=== PATIENT | male | born 1955 | race Caucasian/White ===

== ENCOUNTER 2016-08-07 14:18 | Inpatient (IN) | payer OTHER ==
--- NOTE | 2016-08-07 14:24 | PDOC ---
History of Present Illness - History of Present Illness Initial Comments: 08/07/16 14:56 The patient is a 66-year-old patient, with a, multiple systemic surgeries, hypertension, who presents to the ED s/p mechanical fall today. The patient slipped and hit his head while bowling. He sustained a bump to the left-side of his head and a left wrist injury. Upon examination, pt states that he is experiencing head pain and left wrist pain. He does not recall the fall but does remember being in the ambulance. Pt is sensitive to the light. The patient denies having any other symptoms. <Briseida Corea - Last Filed: 08/07/16 18:13> <Elizabeth Johnson - Last Filed: 08/07/16 19:01> - General Chief Complaint: Injury Stated Complaint: FALL Past History <Briseida Corea - Last Filed: 08/07/16 18:13> <Elizabeth Johnson - Last Filed: 08/07/16 19:01> - Past Medical History Allergies/Adverse Reactions: Allergies Allergy/AdvReac Type Severity Reaction Status Date / Time No Known Allergies Allergy Verified 08/07/16 14:23 Home Medications: Ambulatory Orders Apixaban [Eliquis] 5 mg PO DAILY 08/07/16 Aspirin [ASA -] 81 mg PO DAILY 08/07/16 Dronedarone HCl [Multaq] 400 mg PO DAILY 08/07/16 Metformin HCl 500 mg PO DAILY 08/07/16 Paroxetine HCl 20 mg PO DAILY 08/07/16 Review of Systems - Review of Systems Able to Perform ROS?: Yes Comments:: 08/07/16 14:56 GENERAL/CONSTITUTIONAL: No fever or chills. No weakness. HEAD, EYES, EARS, NOSE AND THROAT: No change in vision. No ear pain or discharge. No sore throat. CARDIOVASCULAR: No chest pain or shortness of breath. RESPIRATORY: No cough, wheezing, or hemoptysis. GASTROINTESTINAL: No nausea, vomiting, diarrhea or constipation. GENITOURINARY: No dysuria, frequency, or change in urination. MUSCULOSKELETAL: No joint swelling or pain. No neck or back pain. (+)Left wrist pain SKIN: No rash NEUROLOGIC: No vertigo, loss of consciousness, or change in strength/sensation. (+)headache ENDOCRINE: No increased thirst. No abnormal weight change. HEMATOLOGIC/LYMPHATIC: No anemia, easy bleeding, or history of blood clots. ALLERGIC/IMMUNOLOGIC: No hives or skin allergy. <Briseida Corea - Last Filed: 08/07/16 18:13> *Physical Exam - Vital Signs Last Vital Signs Temp Pulse Resp BP Pulse Ox 97.9 F 73 18 141/84 100 08/07/16 14:20 08/07/16 14:20 08/07/16 14:20 08/07/16 14:20 08/07/16 14:20 <Briseida Corea - Last Filed: 08/07/16 18:13> - Physical Exam Comments: GENERAL: Awake, alert, dazed, in no acute distress HEAD: +Large hematoma to the L forehead. EYES: PERRLA, EOMI, sclera anicteric, conjunctiva clear ENT: Auricles normal inspection, hearing grossly normal, nares patent, oropharynx clear without exudates. Moist mucosa NECK: Normal ROM, supple, no lymphadenopathy, JVD, or masses LUNGS: Breath sounds equal, clear to auscultation bilaterally. No wheezes, and no crackles HEART: Regular rate and rhythm, normal S1 and S2, no murmurs, rubs or gallops ABDOMEN: Soft, nontender, normoactive bowel sounds. No guarding, no rebound. No masses EXTREMITIES: L wrist with bony deformity and tenderness to distal radius. Remainder of extremities with normal range of motion, no edema. No clubbing or cyanosis. No cords, erythema, or tenderness NEUROLOGICAL: Cranial nerves II through XII grossly intact. Normal speech. Strength and sensation intact. Gait not tested due to nature of complaint. SKIN: Warm, Dry, normal turgor, no rashes or lesions noted. <Elizabeth oJhnson - Last Filed: 08/07/16 19:01> Procedures - Splinting Splint Location: Left: Wrist Pre-Proc Neuro Vasc Exam: normal Hand-Made Type: orthoglass Splint Type: Yes: Thumb Spica Post-Proc Neuro Vasc Exam: normal David Bandage: yes, 3" Complications: No <Elizabeth Johnson - Last Filed: 08/07/16 19:01> Heart Score/ECG Review - ECG Impressions Comment:: EKG read 14:42- NSR 72 bpm, no acute ST/T changes <Elizabeth Johnson - Last Filed: 08/07/16 19:01> ED Treatment Course - LABORATORY CBC & Chemistry Diagram: 08/07/16 14:30 08/07/16 14:30 <Briseida Corea - Last Filed: 08/07/16 18:13> - LABORATORY CBC & Chemistry Diagram: 08/07/16 14:30 08/07/16 14:30 <Elizabeth Johnson - Last Filed: 08/07/16 19:01> Medical Decision Making - Medical Decision Making 08/07/16 15:55 Dr. White was paged and notified via phone service. <Briseida Corea - Last Filed: 08/07/16 18:13> - Medical Decision Making 08/07/16 16:21 Case d/w Dr. White, covering ortho. Recommended placement in splint, follow up in the office on Tuesday (it is currently Tuesday). I have discussed with patient and his significant other, who is now at the bedside. She states that he has fallen 3 times lately, no LOC. No recent cp, SOB, palpitations. He has history of afib on eliquis, HTN, DM on metformin. 08/07/16 16:39 Will admit to hospitalist service. CTH negative, however, patient still having anterograde amnesia, with history of anticoagulants. 08/07/16 17:10 Thumb spica splint placed. Patient tolerated well. <Elizabeth Johnson - Last Filed: 08/07/16 19:01> *DC/Admit/Observation/Transfer - Attestations Scribe Attestion: 08/07/16 14:59 Documentation prepared by Briseida Corea, acting as nuclear medical technologist for Elizabeth Johnson MD. <Briseida Corea - Last Filed: 08/07/16 18:13> - Discharge Dispostion Admit: Yes <Elizabeth Johnson - Last Filed: 08/07/16 19:01> Diagnosis at time of Disposition: Distal radius fracture, left Qualifiers: Encounter type: initial encounter Fracture type: closed Fracture morphology: unspecified fracture morphology Qualified Code(s): S52.502A - Unspecified fracture of the lower end of left radius, initial encounter for closed fracture Concussion Qualifiers: Encounter type: initial encounter Loss of consciousness presence/duration: with LOC of 30 min or less Qualified Code(s): S06.0X1A - Concussion with loss of consciousness of 30 minutes or less, initial encounter Head injury Qualifiers: Encounter type: initial encounter Qualified Code(s): S09.90XA - Unspecified injury of head, initial encounter - Discharge Dispostion Condition at time of disposition: Stable
[2016-08-07] MEDS ORDERED: ACETAMINOPHEN 1000 MG/100 ML VIAL (NON FORMULARY) IVPB ONE (14:25)
[2016-08-07 14:28] VITALS: BMI 25.8
[2016-08-07] MEDS ORDERED: ACETAMINOPHEN INJECTION 100 ML IVPB ONE (14:36)
[2016-08-07 14:41] LABS: BASOPHIL 0.7 % (0-2.0); EOSINOPHIL 2.2 % (0-4.5); MCH 29.1 pg (25.7-33.7); MCHC 33.9 g/dl (32.0-35.9); MEAN CELL VOLUME 85.9 fl (80-96); MEAN PLT VOLUME 8.7 fl (7.5-11.1); NEUTROPHILS 62.2 % (42.8-82.8); PLATELET COUNT 173 K/MM3 (134-434); RDW 13.8 % (11.9-15.9); WHITE BLOOD COUNT 4.4 K/mm3 (4.0-10.0)
[2016-08-07 15:16] LABS: ANION GAP 12 (8-16); CALCIUM 8.6 mg/dL (8.5-10.1); CO2 25 mmol/L (21-32); GLUCOSE,RANDOM 101 mg/dL (74-106)
[2016-08-07 15:19] LABS: ALK PHOS 86 U/L (45-117); BILIRUBIN,TOTAL 0.6 mg/dL (0.2-1.0); CREATININE 0.8 mg/dL (0.7-1.3); SGOT/AST 20 U/L (15-37); SGPT/ALT 40 U/L (12-78); TOT PROT 6.8 g/dl (6.4-8.2)
[2016-08-07] MEDS ORDERED: morphine CARPU-JECT 4 MG/1 ML DISP.SYRIN IVPUSH ONE (15:28)
[2016-08-07] MEDS ORDERED: morphine CARPU-JECT 4 MG/1 ML DISP.SYRIN ONE (15:31)
[2016-08-07 16:43] LABS: INR 1.36 (0.82-1.09); PROTHROMBIN TIME (PATIENT) 15.1 SEC (9.98-11.88)
[2016-08-07] MEDS ORDERED: morphine CARPU-JECT 2 MG/1 ML DISP.SYRIN IVPUSH ONE (16:52)
[2016-08-07] MEDS ORDERED: morphine CARPU-JECT 2 MG/1 ML DISP.SYRIN ONE (16:54)
--- NOTE | 2016-08-07 18:05 | HP ---
CHIEF COMPLAINT: [place] the [place], with head and left arm injury. PCP: Dr. Elizabeth Ramirez MD Business Supervisor: Dr. Dain MD [phone] (Patient scheduled for follow up Cardiology appt on 08/26/2016) HISTORY OF PRESENT ILLNESS: The patient is a 61 year old male with a significant past medical history of atrial fibrillation (on Eliquis), hypertension and multiple falls. He presented to the ED on 08/07/2016 after sustaining a fall in a bowling alley. The patient, and friends state that patient slipped and hit his head while he was bowling and contributes the fall to slippery bowling shoes. He denies any dizziness before falling, denies chest pain or shortness of breath. He is unable to recall the events that brought him to the ED today, but was able to provide a history to EMS. His also reports that patient fell at home approximately two weeks ago when he was sitting at the side of the bathtub and fell backwards landing inside tub. He did not seek medical attention at that time. Patient also reports a mechanical fall at work approximately two weeks ago when he lost his balance and slipped on something (does not recall what) but state he went to Urgent Care but a cat scan was not done. Patient denies alcohol use, drug use or any new recent medications. ER course was notable for: (1) left frontal hematoma on blood thinners (2) left wrist with comminuted distal radial fracture (3) anterograde amnesia (4) CT of head with no evidence of acute intracranial pathology (5) Chest Xray - large heart - no acute chest pathology Recent Travel: denies PAST MEDICAL HISTORY: Atrial fibrillation (On Eliquis), Hypertension, Diabetes PAST SURGICAL HISTORY: Social History: Smoking: denies Alcohol: denies Drugs: denies Family History: He is , has two children ages 31 and 37 Allergies: none reported No Known Allergies Allergy (Verified 08/07/16 14:23) HOME MEDICATIONS: Medication Instructions Recorded Apixaban [Eliquis] 5 mg PO DAILY 08/07/16 Aspirin [ASA -] 81 mg PO DAILY 08/07/16 Dronedarone HCl [Multaq] 400 mg PO DAILY 08/07/16 Metformin HCl 500 mg PO DAILY 08/07/16 Paroxetine HCl 20 mg PO DAILY 08/07/16 REVIEW OF SYSTEMS CONSTITUTIONAL: Absent: fever, chills, diaphoresis, malaise, loss of appetite, weight change HEENT: Absent: rhinorrhea, nasal congestion, throat pain, throat swelling, difficulty swallowing, mouth swelling, ear pain, eye pain, visual changes CARDIOVASCULAR: Absent: chest pain, palpitations, irregular heart rate, peripheral edema RESPIRATORY: Absent: cough, shortness of breath, dyspnea with exertion, orthopnea, wheezing, stridor, hemoptysis GASTROINTESTINAL: Absent: abdominal pain, abdominal distension, nausea, vomiting, diarrhea, constipation, melena, hematochezia GENITOURINARY: Absent: dysuria, frequency, urgency, hesitancy, hematuria, flank pain, genital pain MUSCULOSKELETAL: Absent: myalgia, arthralgia, joint swelling, back pain, neck pain SKIN: Absent: rash, itching, pallor HEMATOLOGIC/IMMUNOLOGIC: Absent: easy bleeding, easy bruising, lymphadenopathy, frequent infections ENDOCRINE: Absent: unexplained weight gain, unexplained weight loss, heat intolerance, cold intolerance PHYSICAL EXAMINATION GENERAL: Awake, alert, answers questions appropriately, but cannot recall events of today's fall. HEAD: Left frontal hematoma, head injury s/p fall EYES: Pupils equal, round and reactive to light, No injury to eye EARS, NOSE, THROAT: Ears normal, nares patent, oropharynx clear without exudates. Moist mucous membranes. NECK: Normal range of motion, supple without lymphadenopathy, JVD, or masses. LUNGS: Breath sounds equal, clear to auscultation bilaterally. No wheezes, and no crackles. No accessory muscle use. HEART: Regular rate and rhythm ABDOMEN: Soft, nontender, not distended, normoactive bowel sounds, no guarding, no rebound, no masses. MUSCULOSKELETAL: Left comminuted distal radial fracture with element of impaction and possible ulnar styloid fracture UPPER EXTREMITIES: 2+ pulses, warm, well-perfused. No cyanosis. No clubbing. Cap refill <2 seconds. No peripheral edema. LOWER EXTREMITIES: No peripheral edema. NEUROLOGICAL: Normal speech. Normal gait. PSYCHIATRIC: Cooperative. Good eye contact SKIN: Warm, dry, normal turgor, no rashes or lesions noted. ASSESSMENT/PLAN: The patient is a 61 year old male with a significant past medical history of atrial fibrillation (on Eliquis), hypertension and multiple falls. He presented to the ED on 08/07/2016 after sustaining fall in [place]. The patient, and friends state that patient slipped and hit his head while he was bowling and contributes the fall to slippery bowling shoes. He denies any dizziness before falling, denies chest pain or shortness of breath. He is unable to recall the events that brought him to the ED today, but was able to provide a history to EMS. His also reports that patient fell at home approximately two weeks ago when he was sitting at the side of the bathtub and fell backwards landing inside tub. He did not seek medical attention at that time. Patient also reports a mechanical fall at work approximately two weeks ago when he lost his balance and slipped on something (does not recall what) but state he went to Urgent Care but a cat scan was not done. Patient denies alcohol use, drug use or any new recent medications. PCP: Dr. Elizabeth Ramirez MD Business Supervisor: Dr. Dain MD [phone] (Patient scheduled for follow up Cardiology appt on 08/26/2016) Cardiology: Syncope Assessment/Plan: Multiple falls in the last 2 weeks, now with left frontal hematoma and left distal radial fracture Troponin x 3 ordered Carotid doppler ordered CT scan of head with no evidence of acute intracranial bleed, will repeat CT in the a.m. On Eliquis daily for atrial fibrillation - will check CT scan in a.m. and if no evidence of bleed, will order Eliquis and ASA On Multaq home medication Orthostatics q8 Continous telemonitoring Neurology: Assessment/Plan: Patient experiencing anterograde amnesia Neuro checks q4 Neurology consulted Muscular/Skeletal: Left comminuted distal radial fracture with an element of impaction and a possible ulnar styloid fracture Ortho following, on left arm splint Endocrine: Diabetes Mellitus - chronic Assessment/Plan: Hold metformin, start on Novolog sliding scale HmgA1c for a.m. F.E.N. Fluids: Tolerating PO Electrolytes: within normal limits, Bmp in a.m. Nutrition: Diabetic diet Visit type - Emergency Visit Emergency Visit: Yes ED Registration Date: 08/07/16 Care time: The patient presented to the Emergency Department on the above date and was hospitalized for further evaluation of their emergent condition. - New Patient This patient is new to me today: Yes Date on this admission: 08/08/16 - Critical Care Critical Care patient: No
[2016-08-07] MEDS ORDERED: PARoxetine HCL 10 MG TABLET (FP) ONE (18:29)
[2016-08-07] MEDS: PARoxetine HCL 20 MG TABLET (FP) PO SCH (18:32)
[2016-08-07 20:10] LABS: TROPONIN I < 0.02 ng/ml (0.00-0.05)
[2016-08-07] MEDS: morphine CARPU-JECT 2 MG/1 ML DISP.SYRIN IVPUSH PRN (20:18)
[2016-08-07] MEDS: INSULIN SLIDING SCALE (NOVOLOG) 1 VIAL SQ SCH (23:07)
[2016-08-07] MEDS: ACETAMINOPHEN 325 MG TABLET (FP) PO PRN (23:18)
[2016-08-08 02:06] LABS: URINE APPEARANCE CLEAR; URINE BILIRUBIN NEGATIVE (NEGATIVE); URINE BLOOD NEGATIVE (NEGATIVE); URINE COLOR YELLOW; URINE GLUCOSE (UA) NEGATIVE (NEGATIVE); URINE KETONE NEGATIVE (NEGATIVE); URINE LEUK ESTERASE NEGATIVE (NEGATIVE); URINE NITRITE NEGATIVE (NEGATIVE); URINE PROTEIN NEGATIVE (NEGATIVE); URINE UROBILINOGEN NEGATIVE E.U./dl (0.2-1.0)
[2016-08-08] MEDS: ACETAMINOPHEN 325 MG TABLET (FP) PO PRN ×2 (05:46→15:00)
[2016-08-08] MEDS: INSULIN SLIDING SCALE (NOVOLOG) 1 VIAL SQ SCH ×4 (06:52→21:20)
[2016-08-08 07:23] LABS: BASOPHIL 0.4 % (0-2.0); EOSINOPHIL 0.9 % (0-4.5); MCH 28.7 pg (25.7-33.7); MCHC 33.6 g/dl (32.0-35.9); MEAN CELL VOLUME 85.4 fl (80-96); MEAN PLT VOLUME 8.8 fl (7.5-11.1); NEUTROPHILS 73.2 % (42.8-82.8); PLATELET COUNT 160 K/MM3 (134-434); RDW 13.8 % (11.9-15.9); WHITE BLOOD COUNT 6.1 K/mm3 (4.0-10.0)
[2016-08-08 08:06] LABS: ALBUMIN 3.7 g/dl (3.4-5.0); ANION GAP 11 (8-16); CALCIUM 8.2 mg/dL (8.5-10.1); CO2 26 mmol/L (21-32); GLUCOSE,RANDOM 110 mg/dL (74-106); MAGNESIUM 1.8 mg/dL (1.8-2.4)
[2016-08-08 08:11] LABS: ALK PHOS 78 U/L (45-117); BILIRUBIN,TOTAL 0.9 mg/dL (0.2-1.0); CREATININE 0.7 mg/dL (0.7-1.3); SGOT/AST 14 U/L (15-37); SGPT/ALT 32 U/L (12-78); TOT PROT 6.3 g/dl (6.4-8.2); TROPONIN I < 0.02 ng/ml (0.00-0.05)
[2016-08-08 08:12] LABS: CHOLESTEROL 138 mg/dL (50-200)
--- NOTE | 2016-08-08 08:28 | PN ---
Progress Note (short form) - Note Progress Note: Cardiology Consult Dictated PAF s/p multiple DCCV on chronic AC with multiple recent falls, minor head trauma REC: Tele to r/o arrhythmia Echo Carotid US Neuro to evaluate To discuss safety of longterm AC
--- NOTE | 2016-08-08 08:39 | PN ---
Physical Exam: SUBJECTIVE: Patient seen and examined. Complaining of a head ache this morning. He denies any visual defect, chest pain or shortness of breath. OBJECTIVE: Vital Signs Period Temp Pulse Resp BP Sys/Alston Pulse Ox Last 24 Hr 97.9 F-98.2 F 64-75 18-19 103-132/64-74 95-95 GENERAL: Awake, alert, answers questions appropriately HEAD: Left frontal scalp hematoma, head injury s/p fall - improving slightly EYES: Pupils equal, round and reactive to light, No injury to eye - denies visual defect EARS, NOSE, THROAT: Ears normal, nares patent, oropharynx clear without exudates. Moist mucous membranes. NECK: Normal range of motion, supple without lymphadenopathy, JVD, or masses. LUNGS: Breath sounds equal, clear to auscultation bilaterally. No wheezes, and no crackles. No accessory muscle use. HEART: Regular rate and rhythm ABDOMEN: Soft, nontender, not distended, normoactive bowel sounds, no guarding, no rebound, no masses. MUSCULOSKELETAL: Left comminuted distal radial fracture with element of impaction and possible ulnar styloid fracture - on fiberglass cast UPPER EXTREMITIES: 2+ pulses, warm, well-perfused. No cyanosis. No clubbing. Cap refill <2 seconds. No peripheral edema. LOWER EXTREMITIES: No peripheral edema. NEUROLOGICAL: Normal speech PSYCHIATRIC: Cooperative. Good eye contact SKIN: Left frontal scalp hematoma, head injury s/p fall - improving slightly Laboratory Results - last 24 hr 08/07/16 08/07/16 08/07/16 18:00 19:20 19:20 WBC RBC Hgb Hct MCV MCHC RDW Plt Count MPV Neutrophils % Lymphocytes % Monocytes % Eosinophils % Basophils % PTT (Actin FS) 34.7 H POC Glucometer Creatine Kinase 88 Troponin I < 0.02 < 0.02 Urine Color Urine Appearance Urine pH Ur Specific Henry Urine Protein Urine Glucose (UA) Urine Ketones Urine Blood Urine Nitrite Urine Bilirubin Urine Urobilinogen Ur Leukocyte Esterase 08/07/16 08/07/16 08/08/16 22:59 23:00 05:35 WBC 6.1 D RBC 4.52 Hgb 13.0 Hct 38.6 MCV 85.4 MCHC 33.6 RDW 13.8 Plt Count 160 MPV 8.8 Neutrophils % 73.2 Lymphocytes % 17.8 D Monocytes % 7.7 Eosinophils % 0.9 Basophils % 0.4 PTT (Actin FS) POC Glucometer 300 Creatine Kinase Troponin I Urine Color Yellow Urine Appearance Clear Urine pH 5.0 Ur Specific Henry 1.028 Urine Protein Negative Urine Glucose (UA) Negative Urine Ketones Negative Urine Blood Negative Urine Nitrite Negative Urine Bilirubin Negative Urine Urobilinogen Negative Ur Leukocyte Esterase Negative 08/08/16 05:49 WBC RBC Hgb Hct MCV MCHC RDW Plt Count MPV Neutrophils % Lymphocytes % Monocytes % Eosinophils % Basophils % PTT (Actin FS) POC Glucometer 110 Creatine Kinase Troponin I Urine Color Urine Appearance Urine pH Ur Specific Henry Urine Protein Urine Glucose (UA) Urine Ketones Urine Blood Urine Nitrite Urine Bilirubin Urine Urobilinogen Ur Leukocyte Esterase Active Medications Generic Name Dose Route Start Last Admin Trade Name Freq PRN Reason Stop Dose Admin Acetaminophen 650 mg 08/07/16 18:51 08/08/16 05:46 Tylenol - PO 650 mg Q6H PRN Administration FEVER OR PAIN Dronedarone 400 mg 08/08/16 10:00 Multaq - PO DAILY [facility] Insulin Aspart 1 vial 08/07/16 22:00 08/08/16 06:52 Novolog Vial Sliding Scale - SQ Not Given [facility] Protocol Morphine Sulfate 2 mg 08/07/16 18:22 08/07/16 20:18 Morphine Injection - IVPUSH 2 mg Q4H PRN Administration PAIN Paroxetine HCl 20 mg 08/07/16 18:00 08/07/16 18:32 Paxil - PO Not Given DAILY [facility] ASSESSMENT/PLAN: The patient is a 61 year old male with a significant past medical history of atrial fibrillation (on Eliquis), hypertension and multiple falls. He presented to the ED on 08/07/2016 after sustaining a fall [place] a bowling [place]. The patient, and friends state that patient slipped and hit his head while he was bowling and contributes the fall to slippery bowling shoes. He denies any dizziness before falling, denies chest pain or shortness of breath. He is unable to recall the events that brought him to the ED yesterday, but was able to provide a history to EMS. His also reports that patient fell at home approximately two weeks ago when he was sitting at the side of the bathtub and fell backwards landing inside tub. He did not seek medical attention at that time. Patient also reports a mechanical fall at work approximately two weeks ago when he lost his balance and slipped on something (does not recall what) but state he went to Urgent Care but a head cat scan was not done. Patient denies alcohol use, drug use or any new recent medications. PCP: Dr. Elizabeth Ramirez MD Specialty Sales Consultant: Dr. Dain MD [phone] (Patient scheduled for follow up Cardiology appt on 08/26/2016) Cardiology: Syncope Assessment/Plan: Multiple falls in the last 2 weeks, now with left frontal scalp hematoma and left distal radial fracture Troponin x 3 negative Carotid doppler ordered - pending read Repeat CT scan 08/08/2016 shows left frontal scalp hematoma - negative for bleed Plavix ordered as per Cardiology recommendations On Dronedarone 400mg home medication for atrial fib.-patient states the takes it BID Orthostatics q8 Continous telemonitoring - NSR 80s on automatic data processing planner Atrial Fibrillation - controlled Assessment/Plan. On Dronedarone 400mg BID for rate control Last episode of atrial fib was apx 2 years prior Started on Plavix per cardiology Neurology: Assessment/Plan: Patient experiencing anterograde amnesia Neuro checks q4 Neurology consulted Muscular/Skeletal: Left comminuted distal radial fracture with an element of impaction and a possible ulnar styloid fracture Ortho following, on left arm fiberglass cast Endocrine: Diabetes Mellitus - chronic Assessment/Plan: Hold metformin, start on Novolog sliding scale HmgA1c 7.3, monitor BGMs F.E.N. Fluids: Tolerating PO Electrolytes: within normal limits, Bmp in a.m. Nutrition: Diabetic diet/low sodium Physical therapy requested for multiple falls - may need STR Disposition: Requires inpatient hospitalization. Full Code. Visit type - Emergency Visit Emergency Visit: Yes ED Registration Date: 08/07/16 Care time: The patient presented to the Emergency Department on the above date and was hospitalized for further evaluation of their emergent condition. - New Patient This patient is new to me today: No - Critical Care Critical Care patient: No - Discharge Referral Referred to [facility] No
--- NOTE | 2016-08-08 09:28 | CONS ---
DATE OF CONSULTATION: 08/08/2016 Consultation is requested by Dr. Dailey for falls versus syncope. CHIEF COMPLAINT: Fall at a bowling alley. A 61-year-old male with previous history of paroxysmal atrial fibrillation, followed by Dr. Gautam in [place]. Patient has undergone multiple cardioversion procedures; he is unsure of when the last one was. He is maintained chronically on Multaq and Eliquis. Patient states he went bowling yesterday, slipped, and fell. He had left the covers of the shoes on. This resulted in a fracture of his left wrist. He also had mild head trauma with a bruise overlying the left orbit. Initial head CT showed no acute intracranial pathology. Patient states he also had a fall at work several weeks ago, for which he was evaluated in a local urgent care center, although he does not recall the details of how that happened. Prior to falling yesterday, he denies antecedent chest pain, shortness of breath, dizziness, lightheadedness, palpitations; however, he has no recollection of the event. PAST MEDICAL HISTORY: Paroxysmal atrial fibrillation, borderline diabetes, on metformin, depression. He denies history of coronary artery disease. ALLERGIES: None. HOME MEDICATIONS: Paroxetine 20 mg daily, metformin 500 mg daily, dronedarone 400 mg daily, aspirin 81 mg daily, and Eliquis 5 mg p.o. b.i.d. FAMILY HISTORY: Noncontributory. SOCIAL HISTORY: Patient lives with . Nonsmoker. 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 PHYSICAL EXAMINATION: Vital Signs: Afebrile, temperature 98.2, pulse 64, sinus rhythm, blood pressure 126/74, O2 of 95% to 96% on room air. Neck: No bruits, no JVD. Heart: S1, S2, regular. No murmurs. Chest: Clear. Abdomen: Soft, nontender. Extremities: Warm with no pitting edema. CHEST X-RAY: No acute pathology. LABORATORIES: White count 6.1, hematocrit 38.6, platelets 160. INR 1.36. Potassium on admission 4.2, creatinine 0.8, BUN 18. CK and troponin negative x2 sets. PRESENTING ELECTROCARDIOGRAM: Normal sinus rhythm at 72 beats/min with no acute ST-T changes. ASSESSMENT: A 61-year-old male with paroxysmal atrial fibrillation, on anticoagulation, now with multiple falls, resulting in left wrist fracture and scalp hematoma. PLAN: 1. Telemetry to rule out arrhythmia. 2. Echocardiogram and carotid ultrasound. 3. Neurology evaluation. 4. To discuss safety of long-term anticoagulation in this patient. We will discuss with and attempt to reach Dr. Gautam when feasible. DENY QUINN M.D. [id number] MTDD
--- NOTE | 2016-08-08 09:31 | EKG ---
Test Reason : Blood Pressure : / mmHG Vent. Rate : 068 BPM Atrial Rate : 068 BPM P-R Int : 158 ms QRS Dur : 096 ms QT Int : 404 ms P-R-T Axes : 052 048 020 degrees QTc Int : 429 ms NORMAL SINUS RHYTHM NONSPECIFIC T WAVE ABNORMALITY ABNORMAL ECG WHEN COMPARED WITH ECG OF 07-AUG-2016 14:38, NO SIGNIFICANT CHANGE WAS FOUND Confirmed by DENY QUINN MD ([id number]) on 08/08/2016 9:30:57 AM Referred By: MALCOLM KARIMI Confirmed By:DENY QUINN MD
--- NOTE | 2016-08-08 09:34 | EKG ---
Test Reason : Blood Pressure : / mmHG Vent. Rate : 072 BPM Atrial Rate : 072 BPM P-R Int : 152 ms QRS Dur : 094 ms QT Int : 410 ms P-R-T Axes : 031 027 018 degrees QTc Int : 448 ms NORMAL SINUS RHYTHM NONSPECIFIC T WAVE ABNORMALITY ABNORMAL ECG NO PREVIOUS ECGS AVAILABLE Confirmed by EDNY QUINN MD ([id number]) on 08/08/2016 9:33:52 AM Referred By: Confirmed By:DENY QUINN MD
--- NOTE | 2016-08-08 09:56 | PN ---
Progress Note (short form) - Note Progress Note: Cardiology Addendum Spoke to Jackie. Last episode of AF was 2 years ago and had DCCV. Has been in sinus since then, patient is generally very sx when he is AF. So, it would be reasonable to stop anticoagulation given his multiple falls and she agrees. He has had tinnitus from ASA so we can start Plavix if repeat head CT is negative. Discussed at length with .
[2016-08-08] MEDS ORDERED: DRONEDARONE HCL 400 MG TAB (FP) PO SCH (10:00)
[2016-08-08] MEDS: CLOPIDOGREL BISULFATE 75 MG TABLET (FP) PO SCH (11:51)
[2016-08-08] MEDS: PARoxetine HCL 20 MG TABLET (FP) PO SCH (11:51)
--- NOTE | 2016-08-08 12:13 | CONSULT ---
Consult Consult Specialty:: Neurology Reason for Consultation:: Post concussive symptoms - History of Present Illness History of Present Illness: 61 year old man with history of atrial fibrillation (on Eliquis), hypertension and multiple falls, presents post fall. Yesterday was at a bowling alley where he slipped, fell and hit his head. He believes this occurred due to slippery bowling shoes. Has had other mechanical falls in the past including two weeks ago when he was sitting at the side of the bathtub and fell backwards landing inside tub. He did not seek medical attention at that time. Patient also reports a mechanical fall at work approximately two weeks ago when he lost his balance and slipped on something. Here CT head x2 showed no acute pathology Reports feeling better, notes headache and arm pain Denies seizure history, shaking during episode, tongue biting or incontinence. Could not recall exactly what happened during the episode. - History Source History Provided By: Patient - Past Medical History Cardio/Vascular: Yes: AFIB, HTN - Alcohol/Substance Use Hx Alcohol Use: No - Smoking History Smoking history: Never smoked Home Medications - Allergies Allergies/Adverse Reactions: Allergies Allergy/AdvReac Type Severity Reaction Status Date / Time No Known Allergies Allergy Verified 08/07/16 14:23 - Home Medications Home Medications: Ambulatory Orders Apixaban [Eliquis] 5 mg PO DAILY 08/07/16 Aspirin [ASA -] 81 mg PO DAILY 08/07/16 Dronedarone HCl [Multaq] 400 mg PO DAILY 08/07/16 Metformin HCl 500 mg PO DAILY 08/07/16 Paroxetine HCl 20 mg PO DAILY 08/07/16 Review of Systems - Review of Systems Constitutional: reports: No Symptoms Eyes: reports: No Symptoms HENT: reports: No Symptoms Neck: reports: No Symptoms Cardiovascular: reports: No Symptoms Respiratory: reports: No Symptoms Neurological: reports: No Symptoms Physical Exam Vital Signs: Vital Signs Temperature 98.2 F 08/08/16 06:00 Pulse Rate 65 08/08/16 06:53 Respiratory Rate 18 08/08/16 06:00 Blood Pressure 115/64 08/08/16 06:53 O2 Sat by Pulse Oximetry (%) 95 08/07/16 21:00 Constitutional: Yes: Well Nourished, No Distress Eyes: Yes: Conjunctiva Clear, EOM Intact HENT: Yes: Other Cardiovascular: Yes: S1, S2 Respiratory: Yes: Regular Neurological: Yes: Alert, Oriented, Cran Nerves II-XII Intact (knows name, age, place, month intact immediate recall, delayed recall 3/3 with prompting right arm weakness due to pain) Labs: CBC, BMP 08/08/16 05:35 08/08/16 05:35 Imaging - Results Cat Scan: Report Reviewed (no acute findings) Problem List - Problems (1) Concussion Code(s): S06.0X9A - CONCUSSION W LOSS OF CONSCIOUSNESS OF UNSP DURATION, INIT Qualifiers: Encounter type: initial encounter Loss of consciousness presence/ duration: with LOC of 30 min or less Qualified Code(s): S06.0X1A - Concussion with loss of consciousness of 30 minutes or less, initial encounter Assessment/Plan 61 year old man with history of atrial fibrillation (on Eliquis), hypertension and multiple falls, presents post fall. CT head x2 showed no acute pathology. Reports feeling better, notes headache and arm pain. Denies seizure history, shaking during episode, tongue biting or incontinence. Could not recall exactly what happened during the episode. Concussion CT head x2 negative Exam non focal, delayed recall impaired but intact with prompting Recommend supportive care, can follow up with us as outpatient if post concussive symptoms persist Please call if further questions
[2016-08-08 16:13] LABS: LDL CHOLESTEROL (ONLY SJRH) 78 mg/dL (5-100)
[2016-08-08] MEDS: morphine CARPU-JECT 2 MG/1 ML DISP.SYRIN IVPUSH PRN (17:02)
[2016-08-08] MEDS: DRONEDARONE HCL 400 MG TAB (FP) PO SCH (21:20)
[2016-08-09 07:29] LABS: BASOPHIL 0.9 % (0-2.0); EOSINOPHIL 1.5 % (0-4.5); MCH 29.6 pg (25.7-33.7); MCHC 34.5 g/dl (32.0-35.9); MEAN CELL VOLUME 85.7 fl (80-96); MEAN PLT VOLUME 8.7 fl (7.5-11.1); NEUTROPHILS 67.5 % (42.8-82.8); PLATELET COUNT 149 K/MM3 (134-434); WHITE BLOOD COUNT 5.5 K/mm3 (4.0-10.0)
[2016-08-09 08:09] LABS: ALBUMIN 3.8 g/dl (3.4-5.0); ALK PHOS 83 U/L (45-117); ANION GAP 11 (8-16); BILIRUBIN,TOTAL 0.7 mg/dL (0.2-1.0); CALCIUM 8.6 mg/dL (8.5-10.1); CO2 26 mmol/L (21-32); CREATININE 0.7 mg/dL (0.7-1.3); GLUCOSE,RANDOM 122 mg/dL (74-106); SGOT/AST 11 U/L (15-37); SGPT/ALT 27 U/L (12-78); TOT PROT 6.5 g/dl (6.4-8.2)
[2016-08-09 10:09] VITALS: PULSE 62; TEMP 98.2
[2016-08-09] MEDS: PARoxetine HCL 20 MG TABLET (FP) PO SCH (10:13)
[2016-08-09] MEDS: CLOPIDOGREL BISULFATE 75 MG TABLET (FP) PO SCH (10:13)
[2016-08-09] MEDS: DRONEDARONE HCL 400 MG TAB (FP) PO SCH (10:14)
[2016-08-09] MEDS: INSULIN SLIDING SCALE (NOVOLOG) 1 VIAL SQ SCH (11:30)
--- NOTE | 2016-08-09 11:36 | PN ---
Progress Note, Physician History of Present Illness: seen and examined today in [facility]. no overnight events. no new complaints. - Current Medication List Current Medications: Active Medications Acetaminophen (Tylenol -) 650 mg PO Q6H PRN PRN Reason: FEVER OR PAIN Last Admin: 08/08/16 15:00 Dose: 650 mg Clopidogrel Bisulfate (Plavix -) 75 mg PO DAILY [facility] Last Admin: 08/09/16 10:13 Dose: 75 mg Dronedarone (Multaq -) 400 mg PO BID [facility] Last Admin: 08/09/16 10:14 Dose: 400 mg Insulin Aspart (Novolog Vial Sliding Scale -) 1 vial SQ ACHS [facility] PRN Reason: Protocol Last Admin: 08/08/16 21:20 Dose: Not Given Morphine Sulfate (Morphine Injection -) 2 mg IVPUSH Q4H PRN PRN Reason: PAIN Last Admin: 08/08/16 17:02 Dose: 2 mg Paroxetine HCl (Paxil -) 20 mg PO DAILY [facility] Last Admin: 08/09/16 10:13 Dose: 20 mg - Objective Vital Signs: Vital Signs Temperature 98.2 F 08/09/16 10:00 Pulse Rate 62 08/09/16 10:00 Respiratory Rate 14 08/09/16 10:00 Blood Pressure 130/76 08/09/16 10:00 O2 Sat by Pulse Oximetry (%) 98 08/08/16 21:00 Constitutional: Yes: Well Nourished, No Distress, Calm Eyes: Yes: WNL, Conjunctiva Clear, EOM Intact, PERRL HENT: Yes: Other (ecchymosis) Neck: Yes: WNL, Supple, Trachea Midline Cardiovascular: Yes: WNL, Regular Rate and Rhythm, S1, S2. No: Bradycardia, Tachycardia, Pulse Irregular, Bruit, JVD, Gallop, Murmur, Rub, S3, S4, Varicosities Respiratory: Yes: WNL, Regular, CTA Bilaterally. No: Rales, Rhonchi, Wheezes Gastrointestinal: Yes: WNL, Normal Bowel Sounds, Soft. No: Distention, Tenderness Musculoskeletal: Yes: Joint Swelling Extremities: Yes: Other (LUE in cast) Edema: No Peripheral Pulses WNL: Yes Peripheral Pulses: Left Doralis Pedis: 2+, Right Dorsalis Pedis: 2+ Integumentary: Yes: Bruising Neurological: Yes: WNL, Alert, Oriented, Cran Nerves II-XII Intact ...Motor Strength: WNL Psychiatric: Yes: WNL, Alert, Oriented Labs: CBC, BMP 08/09/16 05:35 08/09/16 05:35 INR, PTT INR 1.36 (0.82-1.09) H 08/07/16 14:30 - ....Imaging Chest X-ray: Report Reviewed, Image Reviewed EKG: Report Reviewed, Image Reviewed Other: Report Reviewed, Image Reviewed (tele-nsr, pvcs, no afib recorded, no sig arrhythmias) Problem List - Problems (1) Concussion Code(s): S06.0X9A - CONCUSSION W LOSS OF CONSCIOUSNESS OF UNSP DURATION, INIT Qualifiers: Encounter type: initial encounter Loss of consciousness presence/ duration: with LOC of 30 min or less Qualified Code(s): S06.0X1A - Concussion with loss of consciousness of 30 minutes or less, initial encounter (2) Distal radius fracture, left Code(s): S52.502A - UNSP FRACTURE OF THE LOWER END OF LEFT RADIUS, INIT Qualifiers: Encounter type: initial encounter Fracture type: closed Fracture morphology: unspecified fracture morphology Qualified Code(s): S52.502A - Unspecified fracture of the lower end of left radius, initial encounter for closed fracture (3) Head injury Code(s): S09.90XA - UNSPECIFIED INJURY OF HEAD, INITIAL ENCOUNTER Qualifiers: Encounter type: initial encounter Qualified Code(s): S09.90XA - Unspecified injury of head, initial encounter (4) Paroxysmal a-fib Code(s): I48.0 - PAROXYSMAL ATRIAL FIBRILLATION (5) Anticoagulation management encounter Code(s): Z51.81 - ENCOUNTER FOR THERAPEUTIC DRUG LEVEL MONITORING Z79.01 - FINGERNAIL FORMER (CURRENT) USE OF ANTICOAGULANTS Assessment/Plan 61 year old man with a history of Pafib s/p DCCV in the past on AC, with multiple falls that appear mechanical in nature, admitted with fall with a concussion. Pafib-no recurrences recorded here -full AC stopped due to falls with head injury -Plavix started, not on ASA due to prior adverse effects -Carotid doppler showed no sig abnl -f/up echo today -if echo wnl pt would be acceptable for discharge home from a cardiac standpoint -pt to follow up with his real estate salesperson Dr. Garrido within the next 2 weeks.
[2016-08-09 14:13] VITALS: BP 115/67
[2016-08-09] MEDS: ACETAMINOPHEN 325 MG TABLET (FP) PO PRN (16:04)
--- NOTE | 2016-08-09 17:03 | DS ---
Physical Exam: SUBJECTIVE: Patient seen and examined. Pt offers no complaints at this time, he is ready to go home. Denies dizziness/palpitations, visual changes OBJECTIVE: Vital Signs Period Temp Pulse Resp BP Sys/Alston Pulse Ox Last 24 Hr 98 F-98.2 F 62-75 14-20 115-135/67-77 98-98 PHYSICAL EXAM Neuro: alert, awake, cn 2-12intact Heent: L eye hematoma, left frontal hematoma Pulm: CTAB CV: s1 s2 rrr no mrg Abd: s nt nd + bs Ext: LUE cast, no swelling Laboratory Results - last 24 hr 08/08/16 08/09/16 08/09/16 21:18 05:35 05:35 WBC 5.5 RBC 4.55 Hgb 13.5 Hct 39.0 MCV 85.7 MCHC 34.5 RDW 14.0 Plt Count 149 MPV 8.7 Neutrophils % 67.5 Lymphocytes % 21.8 D Monocytes % 8.3 Eosinophils % 1.5 Basophils % 0.9 Sodium 139 Potassium 4.1 Chloride 102 Carbon Dioxide 26 Anion Gap 11 BUN 12 Creatinine 0.7 Creat Clearance w eGFR > 60 POC Glucometer 138 Random Glucose 122 H Calcium 8.6 Total Bilirubin 0.7 D AST 11 L D ALT 27 Alkaline Phosphatase 83 Total Protein 6.5 Albumin 3.8 HOSPITAL COURSE: Date of Admission:08/07/16 Date of Discharge: 08/09/16 Minutes to complete discharge: 35 Discharge Summary Reason For Visit: CONCUSSION,HEAD INJURY Current Active Problems Anticoagulation management encounter (Acute) Concussion (Acute) Distal radius fracture, left (Acute) Head injury (Acute) Paroxysmal a-fib (Acute) Hospital Course: Initial Hospital Course: Briefly, this 61 year old male with pmhx atrial fibrillation (on Eliquis), HTN, and multiple falls. On 08/07/2016 he presented to the ED after sustaining a fall in a bowling alley. The patient, and friends stated he slipped and hit his head while he was bowling and contributes the fall to slippery bowling shoes. In the ED he could not recall the evens, but could with EMS. Note: Per pt fell appox 2 weeks ago sitting at side of bathtub, falling backwards and landing inside tub. He did not seek medical attention at that time. Additionally, 2 weeks ago he lost balance and slipped at work, at the time he went to urgent care however CT was not done Imagin. left wrist with comminuted distal radial fracture 2. CT of head with no evidence of acute intracranial pathology Subsequent Hospital Course/Progress Note/Discharge Summary by a/p: 61 year old man with a history of Pafib s/p DCCV in the past on AC, with multiple falls that appear mechanical in nature, admitted with fall with a concussion. 1. Concussion - Anterograde amnesia, now resolved - CT head negative x2 - Neuro follow up for persistent sx 2. P Afib - Stop Eliquis - Start Plavix - ECHO shows normal lv size, fxn, no wall motion, no valvular regurg - CD no significant abnormality - Pt to f/u w Stove Cleaner Dr. Garrido within the next 2 weeks. 3. L radial fx - Ortho appt today, pt will be making it Dispo: - Home w above plan - Pt aware and agrees to above plan Condition: Stable - Instructions Diet, Activity, Other Instructions: Please return to the ED for any new, persistent, or worsening symptoms. Follow up with your PCP in 1 week Cardiology follow up in 2 weeks with your user interface engineer: Dr. Dain MD [phone] (Patient scheduled for follow up Cardiology appt on 08/26/2016) Referrals: You Ramirez V [Non Staff, Medical] - Boris Christopher MD [Staff Physician] - (Follow up in 2 weeks especially if post consussion symptoms persist ) Matteo Jordan MD [Staff Physician] - Disposition: HOME - Home Medications Comprehensive Discharge Medication List: Ambulatory Orders Dronedarone HCl [Multaq] 400 mg PO DAILY 08/07/16 Metformin HCl 500 mg PO DAILY 08/07/16 Paroxetine HCl 20 mg PO DAILY 08/07/16 Clopidogrel Bisulfate [Plavix -] 75 mg PO DAILY #30 tablet 08/09/16 This patient is new to me today: Yes Date on this admission: 08/11/16 Emergency Visit: Yes ED Registration Date: 08/07/16 Care time: The patient presented to the Emergency Department on the above date and was hospitalized for further evaluation of their emergent condition. Critical Care patient: No - Discharge Referral Referred to [facility] No
== END 2016-08-09 17:56 | disposition home or self-care (01) | DRG 89 ==
LOC: JER 14:18 → JERBED 16:56 → J4W 19:02
PROVIDERS: ADMIT Internal Medicine; ATTEND Nurse Practitioner Acute Care
DX: S06.0X9A Concussion with loss of consciousness of unspecified duration, initial encounter (principal); S52.502A Unspecified fracture of the lower end of left radius, initial encounter for closed fracture; S00.03XA Contusion of scalp, initial encounter; I48.0 Paroxysmal atrial fibrillation; I10 Essential (primary) hypertension; Z79.01 Long term (current) use of anticoagulants; E11.9 Type 2 diabetes mellitus without complications; Z79.84 Long term (current) use of oral hypoglycemic drugs; R29.6 Repeated falls; R41.1 Anterograde amnesia; I95.1 Orthostatic hypotension; F32.9 Major depressive disorder, single episode, unspecified; W01.0XXA Fall on same level from slipping, tripping and stumbling without subsequent striking against object, initial encounter; Y93.54 Activity, bowling; Y92.39 Other specified sports and athletic area as the place of occurrence of the external cause; Y99.8 Other external cause status
CPT/HCPCS: 36415; 70450-TC; 71010-TC; 73110-TC-LT; 80053; 80061; 81003; 82550; 83036; 83721; 83735; 84484; 85025; 85027; 85610; 85730; 86850; 86900; 86901; 93005; 93010; 93306-TC; 93880-TC; 97116-GP; 97161-GP; 99283-25